=== PATIENT | female | born 1955 | race Caucasian/White ===

== ENCOUNTER → 2018-06-13 | Outpatient (REF) | payer BC ==
[~2018-06-13] MED LIST: CYMBALTA60 MG PO; GABAPENTIN300 M2 PO; MELOXICAM15 MG PO; RANITIDINE 150150 MG PO; TIZANIDINE PO; TRAMADOL HYDROC50 MG PO; TRAZODONE50 MG PO; ZYRTEC10 MG PO
[2018-06-13 11:16] VITALS: BP 134/76
== END | disposition home or self-care (01) | DRG 951 ==
LOC: ORM 08:30 → PO 08:52
PROVIDERS: ATTEND Surgery
DX: Z01.818 Encounter for other preprocedural examination (principal); R19.7 Diarrhea, unspecified; R10.13 Epigastric pain; Z87.09 Personal history of other diseases of the respiratory system; Z90.49 Acquired absence of other specified parts of digestive tract; Z96.653 Presence of artificial knee joint, bilateral; Z87.442 Personal history of urinary calculi; Z98.890 Other specified postprocedural states; Z72.89 Other problems related to lifestyle

== ENCOUNTER 2018-07-19 06:27 | Day surgery (SDC) | payer BC ==
[~2018-07-19] VITALS: Ht 162.6 cm; Wt 120.2 kg
[2018-07-19 08:09] VITALS: BP 119/51
== END 2018-07-19 08:25 | disposition home or self-care (01) | DRG 395 ==
LOC: ENDO 06:27
PROVIDERS: ATTEND Surgery
PROC: 0DBF8ZX Excision of Right Large Intestine, Via Natural or Artificial Opening Endoscopic, Diagnostic (ICD-10-PCS; principal; 2018-07-19)
PROC: 0DBL8ZX Excision of Transverse Colon, Via Natural or Artificial Opening Endoscopic, Diagnostic (ICD-10-PCS; 2018-07-19)
PROC: 0DBN8ZX Excision of Sigmoid Colon, Via Natural or Artificial Opening Endoscopic, Diagnostic (ICD-10-PCS; 2018-07-19)
PROC: 0DJ08ZZ Inspection of Upper Intestinal Tract, Via Natural or Artificial Opening Endoscopic (ICD-10-PCS; 2018-07-19)
DX: K63.89 Other specified diseases of intestine (principal); K44.9 Diaphragmatic hernia without obstruction or gangrene; K21.9 Gastro-esophageal reflux disease without esophagitis

== ENCOUNTER 2022-04-19 07:28 | Day surgery (SDC) | payer MEDICARE ==
[~2022-04-19] VITALS: Ht 162.6 cm; Wt 124.7 kg
[2022-04-19 09:32] VITALS: BP 150/78
== END 2022-04-19 09:44 | disposition home or self-care (01) ==
LOC: ENDO 07:28 → ORM 12:30 → ENDO 12:30 → ORM 13:20
PROVIDERS: ATTEND Internal Medicine Gastroenterology
PROC: 0DB98ZX Excision of Duodenum, Via Natural or Artificial Opening Endoscopic, Diagnostic (ICD-10-PCS; principal; 2022-04-19)
PROC: 0DB78ZX Excision of Stomach, Pylorus, Via Natural or Artificial Opening Endoscopic, Diagnostic (ICD-10-PCS; 2022-04-19)
DX: K44.9 Diaphragmatic hernia without obstruction or gangrene (principal); K29.50 Unspecified chronic gastritis without bleeding; R15.9 Full incontinence of feces; Z90.49 Acquired absence of other specified parts of digestive tract